=== PATIENT | male | born 1945 | race Caucasian/White ===

== ENCOUNTER → 2016-03-25 | Outpatient (CLI) | payer MEDICARE, BC, OTHER ==
[2016-03-25 16:15] LABS: BLOOD UREA NITROGEN 17 MG/DL (7-18); CREATININE FOR GFR 1.13 MG/DL (0.70-1.30); GLOMERULAR FILTRATION RATE > 60.0 (>42)
== END ==
LOC: M LAB 14:53
PROVIDERS: ATTEND Urology
DX: N28.1 Cyst of kidney, acquired (principal)

== ENCOUNTER → 2017-05-20 | Outpatient (CLI) | payer MEDICARE, BC, OTHER ==
[2017-05-20 16:29] LABS: ANION GAP 5 MEQ/L (8-16); BLOOD UREA NITROGEN 17 MG/DL (7-18); CALCIUM LEVEL 8.8 MG/DL (8.8-10.2); CARBON DIOXIDE LEVEL 28 MEQ/L (21-32); CHLORIDE LEVEL 106 MEQ/L (98-107); CREATININE FOR GFR 0.99 MG/DL (0.70-1.30); GLOMERULAR FILTRATION RATE > 60.0 (>42); GLUCOSE, FASTING 82 MG/DL (70-100); POTASSIUM SERUM 4.5 MEQ/L (3.5-5.1); PROSTATIC SPECIFIC AG MONITOR 1.82 NG/ML (< 4.0); SODIUM LEVEL 139 MEQ/L (136-145)
== END ==
LOC: M LAB 15:28
DX: R35.0 Frequency of micturition (principal); R35.1 Nocturia; Z85.51 Personal history of malignant neoplasm of bladder
CPT/HCPCS: 84153

== ENCOUNTER → 2018-05-18 | Outpatient (CLI) | payer MEDICARE, BC, OTHER ==
[2018-05-18 13:45] LABS: BLOOD UREA NITROGEN 16 MG/DL (7-18); CREATININE FOR GFR 1.06 MG/DL (0.70-1.30); GLOMERULAR FILTRATION RATE > 60.0 (>42)
== END ==
LOC: M LAB 12:57
PROVIDERS: ATTEND Urology
DX: Z01.812 Encounter for preprocedural laboratory examination (principal); Z85.51 Personal history of malignant neoplasm of bladder

== ENCOUNTER 2018-08-29 16:43 | Emergency (ER) | payer OTHER, MEDICARE, BC ==
[~2018-08-29] VITALS: Ht 182.9 cm; Wt 95.5 kg
[2018-08-29] MEDS ORDERED: LOSA100T50 (18:43)
[2018-08-29] MEDS ORDERED: ALBU8.5H (18:43)
[2018-08-29] MEDS ORDERED: ADV250INH (18:43)
[2018-08-29] MEDS ORDERED: MUPI30CR TOP (19:45)
[2018-08-29] MEDS ORDERED: MUPIROCIN 2% OINT 22 GM TUBE TOP ONE (19:45)
[2018-08-29 20:12] VITALS: BP 160/84
== END 2018-08-29 20:13 | disposition home or self-care (01) ==
LOC: M ED 19:06
DX: S51.801A Unspecified open wound of right forearm, initial encounter (principal); W23.0XXA Caught, crushed, jammed, or pinched between moving objects, initial encounter; Y92.89 Other specified places as the place of occurrence of the external cause; I10 Essential (primary) hypertension; J45.909 Unspecified asthma, uncomplicated; Z87.891 Personal history of nicotine dependence

== ENCOUNTER → 2019-01-22 | Outpatient (CLI) | payer MEDICARE, OTHER, BC ==
[~2019-01-22] MED LIST: ADV250INH; ALBU8.5H; LOSA100T50; MUPI30CR TOP
[2019-01-22 15:35] LABS: HEMOGLOBIN 15.8 g/dl (13.5-17.5); MEAN CORPUSCULAR HEMOGLOBIN 32.7 pg (27.0-33.0); MEAN CORPUSCULAR HGB CONC 32.2 g/dl (32.0-36.5); MEAN CORPUSCULAR VOLUME 101.4 fl (80.0-96.0); PLATELET COUNT, AUTOMATED 225 10^3/uL (150-450); RED BLOOD COUNT 4.83 10^6/uL (4.30-6.10); WHITE BLOOD COUNT 7.3 10^3/uL (4.0-10.0)
[2019-01-22 15:38] LABS: BLOOD UREA NITROGEN 12 MG/DL (7-18); CALCIUM LEVEL 8.9 MG/DL (8.8-10.2); CARBON DIOXIDE LEVEL 30 MEQ/L (21-32); CHLORIDE LEVEL 102 MEQ/L (98-107); CREATININE FOR GFR 1.03 MG/DL (0.70-1.30); GLOMERULAR FILTRATION RATE > 60.0 (>42); GLUCOSE, FASTING 98 MG/DL (70-100); POTASSIUM SERUM 4.5 MEQ/L (3.5-5.1); SODIUM LEVEL 138 MEQ/L (136-145)
== END ==
LOC: M WUC 11:48
PROVIDERS: ATTEND Nurse Practitioner Family
DX: M54.30 Sciatica, unspecified side (principal)

== ENCOUNTER 2019-01-29 10:34 | Emergency (ER) | payer MEDICARE, BC, OTHER ==
[~2019-01-29] VITALS: Ht 182.9 cm; Wt 96.4 kg
[2019-01-29 13:25] LABS: BASO # 0.1 10^3/uL (0.0-0.2); BASO % 0.9 % (0.0-1.0); EOS # 0.2 10^3/uL (0.0-0.5); EOS % 2.1 % (0.0-3.0); HEMATOCRIT 48.3 % (42.0-52.0); LYMPH # 1.1 10^3/uL (1.5-5.0); LYMPH % 14.2 % (24.0-44.0); MEAN CORPUSCULAR HEMOGLOBIN 33.2 pg (27.0-33.0); MEAN CORPUSCULAR HGB CONC 33.1 g/dl (32.0-36.5); MEAN CORPUSCULAR VOLUME 100.2 fl (80.0-96.0); MONO # 0.5 10^3/uL (0.0-0.8); MONO % 6.5 % (0.0-5.0); NEUTROPHILS # 6.1 10^3/uL (1.5-8.5); NEUTROPHILS % 75.3 % (36.0-66.0); PLATELET COUNT, AUTOMATED 227 10^3/uL (150-450); RED BLOOD COUNT 4.82 10^6/uL (4.30-6.10)
[2019-01-29] MEDS ORDERED: ALBUTEROL SULFATE 2.5 MG/0.5 ML INH NEB SOLN NEB ONE (13:30)
--- NOTE | 2019-01-29 13:44 | REP ---
CT lumbar spine: 01/29/2019. Indication: Low back pain. Comparison: None. Findings: Vacuum disc phenomenon and significant loss of disc space height are present at L2/L3, L3/L4 and L5/S1. There is dextroscoliosis of the lumbar spine with the convexity centered at L3/L4. Bilateral renal calculi are present without evidence of obstruction. Aortoiliac atherosclerotic disease is noted. There is no acute fracture, subluxation or dislocation. Spondylosis is present most pronounced at L5/S1. Impression: No acute osseous lumbar spine injury. Scoliosis and multilevel degenerative sequelae. Nonobstructing bilateral renal calculi. Electronically Signed by Stiven Craig DO 01/29/2019 01:35 P
[2019-01-29 13:55] LABS: BLOOD UREA NITROGEN 19 MG/DL (7-18); C REACTIVE PROTEIN QUANTITATIV < 0.30 MG/DL (0.00-0.30); CALCIUM LEVEL 8.5 MG/DL (8.8-10.2); CARBON DIOXIDE LEVEL 31 MEQ/L (21-32); CHLORIDE LEVEL 105 MEQ/L (98-107); CREATININE FOR GFR 0.95 MG/DL (0.70-1.30); GLOMERULAR FILTRATION RATE > 60.0 (>42); GLUCOSE, FASTING 90 MG/DL (70-100); POTASSIUM SERUM 4.2 MEQ/L (3.5-5.1); SODIUM LEVEL 139 MEQ/L (136-145)
--- NOTE | 2019-01-29 13:58 | REP ---
CT pelvis without IV or oral contrast: History: Bilateral hip and pelvic pain. History of bladder cancer. CT findings: The upper most slices in the imaging field of view document intrarenal nephrolithiasis left kidney with two visible lower pole calculi in the left kidney. These measure 10 and 8 mm in greatest diameter respectively. Also noted is some hypertrophy and edema or fibrosis in the small bowel mesentery in the central abdomen which may reflect mesenteric panniculitis. There is left colonic diverticulosis without CT evidence of diverticulitis. Urinary bladder is unremarkable. Prostate and seminal vesicles are intact. No abdominal wall defect is seen. Bone window settings show no bony destructive lesion. There are advanced osteoarthritic facet changes in the lower lumbar spine at L4-5 and L5-S1. A normal appendix is visible. Impression: No evidence of mass or adenopathy. Intrarenal nephrolithiasis lower pole left kidney. Left colonic diverticulosis without CT evidence of diverticulitis. Hypertrophy and edema or fibrosis in the small bowel mesenteric fat question mesenteric panniculitis. Otherwise negative. Electronically Signed by eNptali Rubi MD 01/29/2019 05:59 P
[2019-01-29 14:04] LABS: ERYTHROCYTE SEDIMENTATION RATE 4 mm/hr (0-20)
[2019-01-29 14:52] LABS: RHEUMATOID FACTOR QUANT 37.8 IU/ML (<15.0)
[2019-01-29] MEDS ORDERED: PRED10TA2 PO (14:54)
[2019-01-29 15:06] VITALS: BP 156/72
[2019-01-31 00:06] LABS: ANTINUCLEAR ANTIBODIES DIRECT Negative (Negative); CYCLIC CITRULLINATED PEPTIDE 58 units (0-19); Lyme Disease IgG/IgM Antibodie <0.91 ISR (0.00-0.90); Lyme Disease IgM Ab Quantitati <0.80 index (0.00-0.79)
== END 2019-01-29 15:13 | disposition home or self-care (01) ==
LOC: M ED 10:34
DX: M25.551 Pain in right hip (principal); M25.552 Pain in left hip; M51.36 Other intervertebral disc degeneration, lumbar region; M79.3 Panniculitis, unspecified; N20.0 Calculus of kidney; K57.30 Diverticulosis of large intestine without perforation or abscess without bleeding; C67.9 Malignant neoplasm of bladder, unspecified; F17.200 Nicotine dependence, unspecified, uncomplicated; H81.09 Meniere's disease, unspecified ear; I10 Essential (primary) hypertension; J44.9 Chronic obstructive pulmonary disease, unspecified; Z79.51 Long term (current) use of inhaled steroids; Z79.899 Other long term (current) drug therapy

== ENCOUNTER → 2020-04-18 | Outpatient (CLI) | payer MEDICARE, BC, OTHER ==
[~2020-04-18] MED LIST changes: +PRED10TA2 PO
[2020-04-18 12:49] LABS: BLOOD UREA NITROGEN 21 MG/DL (7-18); CALCIUM LEVEL 8.9 MG/DL (8.8-10.2); CARBON DIOXIDE LEVEL 31 MEQ/L (21-32); CHLORIDE LEVEL 104 MEQ/L (98-107); CREATININE FOR GFR 1.09 MG/DL (0.70-1.30); GLOMERULAR FILTRATION RATE > 60.0 (>42); GLUCOSE, FASTING 89 MG/DL (70-100); POTASSIUM SERUM 4.7 MEQ/L (3.5-5.1); SODIUM LEVEL 138 MEQ/L (136-145)
== END ==
LOC: M LAB 11:50
PROVIDERS: ATTEND Urology
DX: Z12.5 Encounter for screening for malignant neoplasm of prostate (principal); Z85.51 Personal history of malignant neoplasm of bladder; Z85.54 Personal history of malignant neoplasm of ureter

== ENCOUNTER → 2020-05-10 | Outpatient (CLI) | payer MEDICARE, BC, OTHER | LOC: M LABSMTC 11:31 | PROVIDERS: ATTEND Urology | DX: Z11.52 Encounter for screening for COVID-19 (principal) ==

== ENCOUNTER → 2021-07-15 | Outpatient (CLI) | payer MEDICARE, BC, OTHER ==
[~2021-07-15] MED LIST changes: +LOSA100T45; -LOSA100T50
[2021-07-15 14:35] LABS: BLOOD UREA NITROGEN 15 MG/DL (7-18); CALCIUM LEVEL 8.7 MG/DL (8.8-10.2); CARBON DIOXIDE LEVEL 27 MEQ/L (21-32); CHLORIDE LEVEL 107 MEQ/L (98-107); CREATININE FOR GFR 0.92 MG/DL (0.70-1.30); GLOMERULAR FILTRATION RATE > 60.0 (>42); GLUCOSE, FASTING 92 MG/DL (70-100); POTASSIUM SERUM 4.3 MEQ/L (3.5-5.1); SODIUM LEVEL 139 MEQ/L (136-145)
== END ==
LOC: M LAB 13:46
PROVIDERS: ATTEND Urology
DX: Z85.54 Personal history of malignant neoplasm of ureter (principal); Z85.51 Personal history of malignant neoplasm of bladder; Z12.5 Encounter for screening for malignant neoplasm of prostate

== ENCOUNTER → 2022-01-25 | Outpatient (CLI) | payer MEDICARE, BC, OTHER ==
[2022-01-25 11:11] LABS: BLOOD UREA NITROGEN 12 MG/DL (9-23); CALCIUM LEVEL 8.5 MG/DL (8.3-10.6); CARBON DIOXIDE LEVEL 28 MMOL/L (20-31); CHLORIDE LEVEL 101 MMOL/L (98-107); CREATININE FOR GFR 0.81 MG/DL (0.70-1.30); GLOMERULAR FILTRATION RATE > 60.0 (>42); GLUCOSE, FASTING 103 MG/DL (74-106); POTASSIUM SERUM 4.3 MMOL/L (3.5-5.1); SODIUM LEVEL 137 MMOL/L (136-145)
== END ==
LOC: M LAB 09:13
PROVIDERS: ATTEND Urology
DX: Z85.54 Personal history of malignant neoplasm of ureter (principal)

== ENCOUNTER → 2022-02-24 | Outpatient (CLI) | payer MEDICARE, BC, OTHER | LOC: M WUC 11:08 | PROVIDERS: ATTEND Nurse Practitioner Adult Health | DX: J20.9 Acute bronchitis, unspecified (principal); J90 Pleural effusion, not elsewhere classified ==

== ENCOUNTER 2022-03-05 12:46 | Emergency (ER) | payer MEDICARE, BC, OTHER ==
[~2022-03-05] VITALS: Ht 182.9 cm; Wt 90.2 kg
[2022-03-05 12:46] VITALS: BP 127/76
[~2022-03-05 12:46] MED LIST changes: -ALBU2.5V10; -AMLO1TAB24; -ELIQ5TAB PO; -LEVO1TAB39; -TAMS1CAP17; -TREL1AER
[2022-03-05] MEDS ORDERED: LEVO1TAB39 (12:54)
[2022-03-05] MEDS ORDERED: TREL1AER (12:54)
[2022-03-05] MEDS ORDERED: AMLO1TAB24 (12:54)
[2022-03-05] MEDS ORDERED: TAMS1CAP17 (12:54)
[2022-03-05] MEDS ORDERED: ALBU2.5V10 (12:54)
[2022-03-05 13:54] LABS: BASO # 0.1 10^3/uL (0.0-0.2); BASO % 0.4 % (0.0-1.0); EOS # 0.1 10^3/uL (0.0-0.5); EOS % 0.4 % (0.0-3.0); HEMATOCRIT 45.1 % (42.0-52.0); HEMOGLOBIN 14.9 g/dl (13.5-17.5); LYMPH # 0.5 10^3/uL (1.5-5.0); LYMPH % 3.3 % (24.0-44.0); MEAN CORPUSCULAR HEMOGLOBIN 32.2 pg (27.0-33.0); MEAN CORPUSCULAR VOLUME 97.4 fl (80.0-96.0); MONO # 0.4 10^3/uL (0.0-0.8); NEUTROPHILS # 12.9 10^3/uL (1.5-8.5); PLATELET COUNT, AUTOMATED 191 10^3/uL (150-450); RED BLOOD COUNT 4.63 10^6/uL (4.30-6.10)
[2022-03-05 14:05] LABS: INR 0.85; PARTIAL THROMBOPLASTIN TIME 28.6 SECONDS (24.8-34.2); PROTHROMBIN TIME 11.8 SECONDS (12.5-14.5)
[2022-03-05 14:15] LABS: BILIRUBIN,DIRECT 0.2 MG/DL (<0.4)
[2022-03-05 14:22] LABS: ALBUMIN 2.9 G/DL (3.2-5.2); ALKALINE PHOSPHATASE 96 U/L (46-116); ALT/SGPT 53 U/L (7.0-40); AST/SGOT 37 U/L (<34); BILIRUBIN,TOTAL 0.6 MG/DL (0.3-1.2); BLOOD UREA NITROGEN 25 MG/DL (9-23); CALCIUM LEVEL 8.3 MG/DL (8.3-10.6); CARBON DIOXIDE LEVEL 26 MMOL/L (20-31); CHLORIDE LEVEL 102 MMOL/L (98-107); CREATININE FOR GFR 0.94 MG/DL (0.70-1.30); GLOMERULAR FILTRATION RATE > 60.0 (>42); GLUCOSE, FASTING 101 MG/DL (74-106); POTASSIUM SERUM 5.8 MMOL/L (3.5-5.1); SODIUM LEVEL 134 MMOL/L (136-145); TOTAL PROTEIN 6.3 G/DL (5.7-8.2)
[2022-03-05] MEDS ORDERED: ISOVUE-370 76% 100ML VIAL As Ordered ONE (14:27)
[2022-03-05 15:00] LABS: D-DIMER QUANT > 4000 ng/ml (<500)
[2022-03-05] MEDS ORDERED: APIXABAN 5 MG TAB (ELIQUIS) PO ONE (15:25)
[2022-03-05] MEDS ORDERED: ELIQ5TAB PO (15:39)
== END 2022-03-05 16:52 | disposition home or self-care (01) ==
LOC: M ED 12:46
DX: I26.99 Other pulmonary embolism without acute cor pulmonale (principal); I80.292 Phlebitis and thrombophlebitis of other deep vessels of left lower extremity; J90 Pleural effusion, not elsewhere classified; R91.8 Other nonspecific abnormal finding of lung field; N28.1 Cyst of kidney, acquired; N20.0 Calculus of kidney; I10 Essential (primary) hypertension; J45.909 Unspecified asthma, uncomplicated; Z87.442 Personal history of urinary calculi; Z85.51 Personal history of malignant neoplasm of bladder
CPT/HCPCS: 71275; 80048; 80076; 85025; 85379; 85610; 85730; 93005; 93041; 93971; 94760; 99284; Q9967

== ENCOUNTER → 2022-03-05 | Outpatient (CLI) | payer MEDICARE, BC, OTHER ==
[~2022-03-05] MED LIST changes: +ALBU2.5V10; +AMLO1TAB24; +ELIQ5TAB PO; +LEVO1TAB39; +TAMS1CAP17; +TREL1AER
== END ==
LOC: M WHC 11:24
PROVIDERS: ATTEND Physician Assistant Medical
DX: I82.402 Acute embolism and thrombosis of unspecified deep veins of left lower extremity (principal)

== ENCOUNTER → 2022-04-19 | Outpatient (CLI) | payer MEDICARE, BC, OTHER ==
[~2022-04-19] MED LIST changes: +ALBU2.5V10; +AMLO1TAB24; +ELIQ5TAB PO; +LEVO1TAB39; +TAMS1CAP17; +TREL1AER
== END ==
LOC: M RAD 11:01
PROVIDERS: ATTEND Nurse Practitioner Family
DX: R91.1 Solitary pulmonary nodule (principal)

== ENCOUNTER → 2022-05-10 | Outpatient (CLI) | payer MEDICARE, BC, OTHER | LOC: M LABSMTC 10:56 | PROVIDERS: ATTEND Nurse Practitioner Family | DX: Z01.818 Encounter for other preprocedural examination (principal); Z11.52 Encounter for screening for COVID-19; J90 Pleural effusion, not elsewhere classified ==

== ENCOUNTER → 2022-05-19 | Outpatient (REF) | payer MEDICARE, BC, OTHER | LOC: M WUC 22:44 | PROVIDERS: ATTEND Nurse Practitioner Family | DX: R30.0 Dysuria (principal); N39.0 Urinary tract infection, site not specified ==

== ENCOUNTER → 2022-06-02 | Outpatient (REF) | payer MEDICARE, BC, OTHER | LOC: M LAB REF 16:37 | PROVIDERS: ATTEND Physician Assistant Medical | DX: N39.0 Urinary tract infection, site not specified (principal) ==

== ENCOUNTER → 2022-06-18 | Outpatient (REF) | payer MEDICARE, BC, OTHER ==
[2022-06-18 15:27] LABS: APPEARANCE, URINE HAZY (CLEAR); BACTERIA, URINE AUTO NEGATIVE (NEGATIVE); BILIRUBIN, URINE AUTO NEGATIVE (NEGATIVE); BLOOD, URINE BLOOD 3+ (NEGATIVE); COLOR, URINE YELLOW (YELLOW); GLUCOSE, URINE (UA) AUTO NEGATIVE (NEGATIVE); KETONE, URINE AUTO TRACE mg/dL (NEGATIVE); LEUKOCYTE ESTERASE, URINE AUTO TRACE (NEGATIVE); MUCUS, URINE SMALL (NEGATIVE); NITRITE, URINE AUTO NEGATIVE (NEGATIVE); PROTEIN, URINE AUTO 2+ mg/dL (NEGATIVE); RBC, URINE AUTO TNTC /HPF (0-3); SPECIFIC GRAVITY URINE AUTO 1.011 (1.002-1.035); SQUAMOUS EPITHELIAL CELL UR AU 1 /HPF (0-6); UROBILINOGEN, URINE AUTO 0.2 mg/dL (0.0-2.0); WBC, URINE AUTO TNTC /HPF (0-3)
== END ==
LOC: M LAB REF 14:41
PROVIDERS: ATTEND Nurse Practitioner Adult Health
DX: R30.0 Dysuria (principal)

== ENCOUNTER → 2022-07-16 | Outpatient (CLI) | payer MEDICARE, BC, OTHER ==
[~2022-07-16] MED LIST changes: -LOSA100T45; +LOSA100T46
== END ==
LOC: M RAD 09:48
PROVIDERS: ATTEND Nurse Practitioner Adult Health
DX: I82.412 Acute embolism and thrombosis of left femoral vein (principal); I82.812 Embolism and thrombosis of superficial veins of left lower extremity; I82.432 Acute embolism and thrombosis of left popliteal vein

== ENCOUNTER → 2022-07-16 | Outpatient (CLI) | payer MEDICARE, BC, OTHER ==
[2022-07-16 11:18] LABS: PROSTATIC SPECIFIC AG MONITOR 1.49 NG/ML (< 4.00)
[2022-07-16 11:21] LABS: BLOOD UREA NITROGEN 17 MG/DL (9-23); CARBON DIOXIDE LEVEL 30 MMOL/L (20-31); CHLORIDE LEVEL 103 MMOL/L (98-107); CREATININE FOR GFR 0.93 MG/DL (0.70-1.30); GLOMERULAR FILTRATION RATE > 60.0 (>42); GLUCOSE, FASTING 91 MG/DL (74-106); POTASSIUM SERUM 4.2 MMOL/L (3.5-5.1); SODIUM LEVEL 138 MMOL/L (136-145)
== END ==
LOC: M LAB 09:54
PROVIDERS: ATTEND Urology
DX: I82.412 Acute embolism and thrombosis of left femoral vein (principal); I82.812 Embolism and thrombosis of superficial veins of left lower extremity; I82.432 Acute embolism and thrombosis of left popliteal vein; Z85.54 Personal history of malignant neoplasm of ureter; Z85.51 Personal history of malignant neoplasm of bladder; Z12.5 Encounter for screening for malignant neoplasm of prostate

== ENCOUNTER → 2022-07-26 | Outpatient (CLI) | payer MEDICARE, BC, OTHER | LOC: M RAD 13:14 | PROVIDERS: ATTEND Thoracic Surgery (Cardiothoracic Vascular Surgery) | DX: R91.8 Other nonspecific abnormal finding of lung field (principal); J47.9 Bronchiectasis, uncomplicated; J98.11 Atelectasis; J90 Pleural effusion, not elsewhere classified ==

== ENCOUNTER → 2022-09-16 | Outpatient (REF) | payer MEDICARE, BC, OTHER ==
[2022-09-16 11:52] LABS: INR 1.02; PROTHROMBIN TIME 13.6 SECONDS (12.5-14.5)
[2022-09-16 11:53] LABS: PARTIAL THROMBOPLASTIN TIME 35.4 SECONDS (24.8-34.2)
== END ==
LOC: M LAB REF 11:45
PROVIDERS: ATTEND Internal Medicine
DX: Z01.818 Encounter for other preprocedural examination (principal)

== ENCOUNTER → 2022-10-11 | Outpatient (CLI) | payer MEDICARE, BC, OTHER | LOC: M RAD 16:44 | PROVIDERS: ATTEND Nurse Practitioner Family | DX: J90 Pleural effusion, not elsewhere classified (principal) ==

== ENCOUNTER 2022-10-26 13:55 | Observation (INO) | payer MEDICARE, BC, OTHER ==
[~2022-10-26] VITALS: Ht 182.9 cm; Wt 90.0 kg
[2022-10-26] MEDS ORDERED: FUROSEMIDE 40MG/4ML VIAL IV ONE (15:05)
[2022-10-26 15:20] LABS: BASO # 0.1 10^3/uL (0.0-0.2); BASO % 0.3 % (0.0-1.0); EOS % 0.1 % (0.0-3.0); HEMATOCRIT 46.9 % (42.0-52.0); HEMOGLOBIN 15.7 g/dl (13.5-17.5); LYMPH # 0.5 10^3/uL (1.5-5.0); LYMPH % 2.5 % (24.0-44.0); MEAN CORPUSCULAR HEMOGLOBIN 32.5 pg (27.0-33.0); MEAN CORPUSCULAR HGB CONC 33.5 g/dl (32.0-36.5); MEAN CORPUSCULAR VOLUME 97.1 fl (80.0-96.0); MONO # 1.1 10^3/uL (0.0-0.8); MONO % 5.6 % (2.0-8.0); NEUTROPHILS # 17.4 10^3/uL (1.5-8.5); NEUTROPHILS % 90.6 % (36.0-66.0); PLATELET COUNT, AUTOMATED 207 10^3/uL (150-450); RED BLOOD COUNT 4.83 10^6/uL (4.30-6.10); WHITE BLOOD COUNT 19.2 10^3/uL (4.0-10.0)
[2022-10-26] MEDS: IPRATROPIUM 0.5MG/ALBUTEROL 2.5MG INH SOL UD 3ML (DUONEB) NEB SCH ×4 (15:26→19:56)
[2022-10-26 15:35] LABS: ABG BASE EXCESS -1.1 (-2.0-2.0); ABG HCO3 23.4 MMOL/L (22.0-26.0); ABG O2 SATURATION 95.1 % (95.0-99.0); ABG PARTIAL PRESSURE CO2 38.8 mmHg (35.0-45.0); ABG PARTIAL PRESSURE O2 76.5 mmHg (75.0-100.0); ABG STANDARD HCO3 23.5 MMOL/L. (22.0-26.0); ABG TOTAL CO2 24.6 MMOL/L (23.0-31.0); ABG pH (ARTERIAL) 7.399 UNITS (7.350-7.450)
[2022-10-26 15:43] LABS: ALBUMIN 3.1 G/DL (3.2-5.2); ALKALINE PHOSPHATASE 82 U/L (46-116); ALT/SGPT 20 U/L (7.0-40); AST/SGOT 12 U/L (<34); BILIRUBIN,DIRECT 0.4 MG/DL (<0.4); BILIRUBIN,TOTAL 1.1 MG/DL (0.3-1.2); BLOOD UREA NITROGEN 22 MG/DL (9-23); CALCIUM LEVEL 8.2 MG/DL (8.3-10.6); CARBON DIOXIDE LEVEL 25 MMOL/L (20-31); CHLORIDE LEVEL 104 MMOL/L (98-107); CREATININE FOR GFR 0.82 MG/DL (0.70-1.30); GLOMERULAR FILTRATION RATE > 60.0 (>42); GLUCOSE, FASTING 114 MG/DL (74-106); POTASSIUM SERUM 4.3 MMOL/L (3.5-5.1); SODIUM LEVEL 136 MMOL/L (136-145); TOTAL PROTEIN 6.3 G/DL (5.7-8.2)
[2022-10-26 15:47] LABS: CK-MB VALUE MASS < 1.0 NG/ML (<3.6)
[2022-10-26 15:49] LABS: CPK CREATINE PHOSPHOKINASE 56 U/L (46-171); MB/CK RELATIVE INDEX 1.78 (< OR =4)
[2022-10-26 17:22] LABS: CK-MB VALUE MASS < 1.0 NG/ML (<3.6)
[2022-10-26 17:26] LABS: CPK CREATINE PHOSPHOKINASE 63 U/L (46-171); MB/CK RELATIVE INDEX 1.58 (< OR =4)
[2022-10-26 18:27] LABS: PROCALCITONIN 0.07 ng/ml
[2022-10-26] MEDS ORDERED: guaiFENesin DM LIQ 10ML UD PO PRN (19:05)
[2022-10-26] MEDS ORDERED: guaiFENesin DM LIQ 10ML UD PO ONE (19:05)
[2022-10-26] MEDS: FUROSEMIDE 40MG/4ML VIAL IV SCH (19:05)
[2022-10-26] MEDS ORDERED: MED REC IN PROGRESS XX SCH (19:15)
[2022-10-26 19:43] LABS: BLOOD UREA NITROGEN 19 MG/DL (9-23); CALCIUM LEVEL 8.4 MG/DL (8.3-10.6); CARBON DIOXIDE LEVEL 27 MMOL/L (20-31); CHLORIDE LEVEL 103 MMOL/L (98-107); CREATININE FOR GFR 0.88 MG/DL (0.70-1.30); GLOMERULAR FILTRATION RATE > 60.0 (>42); GLUCOSE, FASTING 102 MG/DL (74-106); POTASSIUM SERUM 3.9 MMOL/L (3.5-5.1); SODIUM LEVEL 138 MMOL/L (136-145)
[2022-10-26] MEDS: methylPREDNISolone 40MG 1ML VIAL IV SCH (20:00)
[2022-10-26] MEDS ORDERED: cefTRIAXone SOD 2 GM in D5W MINI-BAG PLUS 50 ML IV SCH (20:00)
[2022-10-26 20:06] LABS: INR 1.03; PROTHROMBIN TIME 13.2 SECONDS (12.5-14.5)
[2022-10-26 20:07] LABS: PARTIAL THROMBOPLASTIN TIME 33.4 SECONDS (24.8-34.2)
[2022-10-26] MEDS ORDERED: MED REC CURRENTLY UNOBTAINABLE XX SCH (20:50)
[2022-10-26] MEDS ORDERED: ENTER DRUG NAME HERE (PATIENT'S OWN MED) INH SCH (21:00)
[2022-10-26] MEDS: DOXYCYCLINE HYCLATE 100 MG in D5W MINI-BAG PLUS 100 ML IV SCH (21:00)
[2022-10-26 21:40] VITALS: BP 151/74; TEMP 99.3; O2SAT 94
[2022-10-26 23:04] VITALS: TEMP 98.1
[2022-10-27] VITALS (9 sets, daily range): BP systolic 127–138; BP diastolic 70–73; TEMP 98.1–98.4; O2SAT 91–97
[2022-10-27] MEDS ORDERED: TREL1AER INH (00:03)
[2022-10-27] MEDS ORDERED: ELIQ5TAB PO (00:03)
[2022-10-27] MEDS ORDERED: FLOM0.4C39 PO (00:03)
[2022-10-27] MEDS ORDERED: ALBU8.5H INH (00:03)
[2022-10-27] MEDS ORDERED: AMLO1TAB24 PO (00:03)
[2022-10-27] MEDS ORDERED: ALBU2.5V10 INH ×2 (00:03→07:28)
[2022-10-27] MEDS ORDERED: HOME MED LIST COMPLETE! XX SCH (00:05)
[2022-10-27 00:40] LABS: CK-MB VALUE MASS < 1.0 NG/ML (<3.6)
[2022-10-27 00:41] LABS: CPK CREATINE PHOSPHOKINASE 73 U/L (46-171); MB/CK RELATIVE INDEX 1.36 (< OR =4)
[2022-10-27] MEDS: methylPREDNISolone 40MG 1ML VIAL IV SCH ×2 (05:19→13:00)
[2022-10-27] MEDS: IPRATROPIUM 0.5MG/ALBUTEROL 2.5MG INH SOL UD 3ML (DUONEB) NEB SCH ×5 (05:26→15:51)
[2022-10-27 07:13] LABS: BASO % 0.1 % (0.0-1.0); HEMATOCRIT 47.4 % (42.0-52.0); HEMOGLOBIN 15.6 g/dl (13.5-17.5); LYMPH # 0.5 10^3/uL (1.5-5.0); LYMPH % 2.6 % (24.0-44.0); MEAN CORPUSCULAR HEMOGLOBIN 32.2 pg (27.0-33.0); MEAN CORPUSCULAR HGB CONC 32.9 g/dl (32.0-36.5); MEAN CORPUSCULAR VOLUME 97.9 fl (80.0-96.0); MONO # 0.4 10^3/uL (0.0-0.8); NEUTROPHILS # 16.1 10^3/uL (1.5-8.5); NEUTROPHILS % 94.3 % (36.0-66.0); PLATELET COUNT, AUTOMATED 195 10^3/uL (150-450); RED BLOOD COUNT 4.84 10^6/uL (4.30-6.10); WHITE BLOOD COUNT 17.1 10^3/uL (4.0-10.0)
[2022-10-27] MEDS ORDERED: BACI1CAP PO (07:28)
[2022-10-27] MEDS ORDERED: PRED10TA2 PO (07:28)
[2022-10-27] MEDS ORDERED: PRED20TA PO (07:28)
[2022-10-27] MEDS ORDERED: DOXY-444 PO (07:28)
[2022-10-27] MEDS ORDERED: CEFD300C41 PO (07:28)
[2022-10-27 07:37] LABS: CK-MB VALUE MASS < 1.0 NG/ML (<3.6); TOTAL PROTEIN 6.2 G/DL (5.7-8.2)
[2022-10-27 07:39] LABS: BLOOD UREA NITROGEN 20 MG/DL (9-23); CALCIUM LEVEL 8.6 MG/DL (8.3-10.6); CARBON DIOXIDE LEVEL 28 MMOL/L (20-31); CHLORIDE LEVEL 103 MMOL/L (98-107); CPK CREATINE PHOSPHOKINASE 78 U/L (46-171); CREATININE FOR GFR 0.84 MG/DL (0.70-1.30); GLOMERULAR FILTRATION RATE > 60.0 (>42); GLUCOSE, FASTING 144 MG/DL (74-106); MB/CK RELATIVE INDEX 1.28 (< OR =4); POTASSIUM SERUM 4.1 MMOL/L (3.5-5.1); SODIUM LEVEL 136 MMOL/L (136-145)
[2022-10-27] MEDS: DOXYCYCLINE HYCLATE 100 MG in D5W MINI-BAG PLUS 100 ML IV SCH (08:50)
[2022-10-27] MEDS: FUROSEMIDE 40MG/4ML VIAL IV SCH (08:51)
[2022-10-27 12:41] LABS: CK-MB VALUE MASS 1.1 NG/ML (<3.6)
[2022-10-27 12:50] LABS: MB/CK RELATIVE INDEX 1.11 (< OR =4)
[2022-10-27 15:38] LABS: PH BODY FLUID 7.703 UNITS (NOT ESTABLISHED); SOURCE, BODY FLUID pH PLEURAL
[2022-10-27 15:43] LABS: APPEARANCE, BODY FLUID HAZY (CLEAR); PLEURAL FL COLOR ORANGE (COLORLESS); SOURCE, BODY FLUID PLEURAL
[2022-10-27 16:23] LABS: SOURCE, BODY FLUID GLUCOSE PLEURAL
[2022-10-27 16:24] LABS: LDH, BODY FLUID 124 U/L (NOT ESTABLISHED); SOURCE, BODY FLUID LDH PLEURAL
[2022-10-27 16:25] LABS: AMYLASE, BODY FLUID 100 U/L (NOT ESTABLISHED); SOURCE, BODY FLUID AMYLASE PLEURAL; SOURCE, BODY FLUID TOT PROTEIN PLEURAL
[2022-10-27] MEDS ORDERED: DOXYCYCLINE HYCLATE 100MG TABLET PO SCH (21:00)
[2022-10-28 13:09] LABS: ANTINUCLEAR ANTIBODIES DIRECT Negative (Negative)
== END 2022-10-27 16:45 | disposition home health service (06) ==
LOC: M ED 13:55 → M ED INP 13:56 → ENRESERV 21:08 → CANRESERV 21:08 → ENRESERV 21:19 → M MS5PR 21:45
PROVIDERS: ADMIT General Practice; ATTEND General Practice
DX: J90 Pleural effusion, not elsewhere classified (principal); J98.11 Atelectasis; J44.1 Chronic obstructive pulmonary disease with (acute) exacerbation; Z87.09 Personal history of other diseases of the respiratory system; Z85.59 Personal history of malignant neoplasm of other urinary tract organ; Z85.51 Personal history of malignant neoplasm of bladder; Z86.711 Personal history of pulmonary embolism; Z86.718 Personal history of other venous thrombosis and embolism; Z79.52 Long term (current) use of systemic steroids; D72.829 Elevated white blood cell count, unspecified; Z87.891 Personal history of nicotine dependence; Z84.1 Family history of disorders of kidney and ureter; Z79.899 Other long term (current) drug therapy; Z79.01 Long term (current) use of anticoagulants; Z79.2 Long term (current) use of antibiotics
CPT/HCPCS: 32555; 36415; 36600; 71250; 80048; 80076; 82150; 82550; 82553; 82803; 82945; 83605; 83615; 83735; 83880; 83986; 84145; 84155; 84157; 84484; 85025; 85610; 85652; 85730; 86038; 86140; 87040; 87070; 87102; 87116; 87206; 87486; 87581; 87633; 87798; 88108; 88305; 88313; 89051; 93005; 93306; 94640; 94760; 96365; 96375; 96376; 97165; 97535; 99285; G0378; J0696; J1940; J2920

== ENCOUNTER → 2022-11-01 | Outpatient (REF) | payer MEDICARE, BC, OTHER ==
[~2022-11-01] MED LIST changes: +ALBU2.5V10 INH; +ALBU8.5H INH; +AMLO1TAB24 PO; +BACI1CAP PO; +CEFD300C41 PO; +DOXY-444 PO; +FLOM0.4C39 PO; +PRED20TA PO; +TREL1AER INH
== END ==
LOC: M LAB REF 17:07
PROVIDERS: ATTEND Nurse Practitioner Family
DX: N39.0 Urinary tract infection, site not specified (principal)

== ENCOUNTER → 2023-01-17 | Outpatient (CLI) | payer MEDICARE, BC, OTHER ==
[~2023-01-17] MED LIST changes: -CEFD300C41 PO; +CEFD300C42 PO
== END ==
LOC: M RAD 12:32
PROVIDERS: ATTEND Internal Medicine Pulmonary Disease
DX: R91.8 Other nonspecific abnormal finding of lung field (principal); J98.11 Atelectasis; J91.8 Pleural effusion in other conditions classified elsewhere; J84.113 Idiopathic non-specific interstitial pneumonitis; I25.84 Coronary atherosclerosis due to calcified coronary lesion; K76.89 Other specified diseases of liver

== ENCOUNTER → 2023-03-28 | Outpatient (CLI) | payer MEDICARE, BC, OTHER ==
[~2023-03-28] MED LIST changes: +CEFD1CAP9 PO; -CEFD300C42 PO
== END ==
LOC: M RAD 15:46
PROVIDERS: ATTEND Internal Medicine Pulmonary Disease
DX: J90 Pleural effusion, not elsewhere classified (principal); R91.8 Other nonspecific abnormal finding of lung field

== ENCOUNTER → 2023-04-04 | Outpatient (CLI) | payer MEDICARE, BC, OTHER ==
[2023-04-04 11:45] LABS: PLATELET COUNT, AUTOMATED 261 10^3/uL (150-450)
[2023-04-04 11:55] LABS: INR 1.04; PROTHROMBIN TIME 13.3 SECONDS (12.5-14.5)
[2023-04-04 11:56] LABS: PARTIAL THROMBOPLASTIN TIME 34.2 SECONDS (24.8-34.2)
== END ==
LOC: M LAB 11:07
PROVIDERS: ATTEND Internal Medicine Pulmonary Disease
DX: Z01.812 Encounter for preprocedural laboratory examination (principal); J90 Pleural effusion, not elsewhere classified; Z79.01 Long term (current) use of anticoagulants

== ENCOUNTER → 2023-04-05 | Outpatient (CLI) | payer MEDICARE, BC, OTHER ==
[~2023-04-05] MED LIST changes: +ACETAMINOPHEN 325 MG TAB As Ordered ONE
[2023-04-05 10:45] VITALS: TEMP 98
[2023-04-05 11:25] LABS: BASO # 0.1 10^3/uL (0.0-0.2); BASO % 0.7 % (0.0-1.0); EOS # 0.2 10^3/uL (0.0-0.5); EOS % 1.7 % (0.0-3.0); HEMATOCRIT 49.4 % (42.0-52.0); HEMOGLOBIN 16.3 g/dl (13.5-17.5); LYMPH # 1.1 10^3/uL (1.5-5.0); LYMPH % 8.9 % (24.0-44.0); MEAN CORPUSCULAR HEMOGLOBIN 32.5 pg (27.0-33.0); MEAN CORPUSCULAR VOLUME 98.6 fl (80.0-96.0); MONO # 0.8 10^3/uL (0.0-0.8); MONO % 6.1 % (2.0-8.0); NEUTROPHILS % 80.4 % (36.0-66.0); PLATELET COUNT, AUTOMATED 266 10^3/uL (150-450); RED BLOOD COUNT 5.01 10^6/uL (4.30-6.10); WHITE BLOOD COUNT 12.4 10^3/uL (4.0-10.0)
[2023-04-05 11:39] LABS: INR 0.91
[2023-04-05 11:40] LABS: PARTIAL THROMBOPLASTIN TIME 30.5 SECONDS (24.8-34.2)
[2023-04-05 11:54] LABS: LDH LACTATE DEHYDROGENASE 225 U/L (120-246)
[2023-04-05 11:55] LABS: ALBUMIN 3.4 G/DL (3.2-5.2); ALKALINE PHOSPHATASE 86 U/L (46-116); ALT/SGPT 59 U/L (7.0-40); AST/SGOT 27 U/L (<34); BILIRUBIN,TOTAL 0.8 MG/DL (0.3-1.2); BLOOD UREA NITROGEN 18 MG/DL (9-23); CALCIUM LEVEL 8.5 MG/DL (8.3-10.6); CARBON DIOXIDE LEVEL 33 MMOL/L (20-31); CHLORIDE LEVEL 103 MMOL/L (98-107); GLOMERULAR FILTRATION RATE > 60.0 (>42); GLUCOSE, FASTING 88 MG/DL (74-106); SODIUM LEVEL 139 MMOL/L (136-145); TOTAL PROTEIN 6.8 G/DL (5.7-8.2)
[2023-04-05] MEDS: ACETAMINOPHEN TAB 650MG DOSE (2X325MG) PO PRN (12:25)
[2023-04-05 12:48] LABS: PH BODY FLUID 7.648 UNITS (NOT ESTABLISHED); SOURCE, BODY FLUID pH PLEURAL
[2023-04-05 13:01] LABS: APPEARANCE, BODY FLUID TURBID (CLEAR); PLEURAL FL COLOR ORANGE (COLORLESS); SOURCE, BODY FLUID PLEURAL
[2023-04-05 13:16] LABS: SOURCE, BODY FLUID GLUCOSE PLEURAL
[2023-04-05 13:17] LABS: LDH, BODY FLUID 285 U/L (NOT ESTABLISHED); SOURCE, BODY FLUID LDH PLEURAL
[2023-04-05 13:18] LABS: AMYLASE, BODY FLUID 107 U/L (NOT ESTABLISHED); SOURCE, BODY FLUID AMYLASE PLEURAL; SOURCE, BODY FLUID TOT PROTEIN PLEURAL; TOTAL PROTEIN, BODY FLUID 3.6 G/DL (NOT ESTABLISHED)
[2023-04-05 13:45] VITALS: BP 134/75; O2SAT 93
== END ==
LOC: M IRPRO 10:27
PROVIDERS: ATTEND Internal Medicine Pulmonary Disease
DX: J90 Pleural effusion, not elsewhere classified (principal); Z79.01 Long term (current) use of anticoagulants

== ENCOUNTER → 2023-04-19 | Outpatient (CLI) | payer MEDICARE, BC, OTHER ==
[~2023-04-19] MED LIST changes: -ACETAMINOPHEN 325 MG TAB As Ordered ONE
== END ==
LOC: M RAD 12:19
PROVIDERS: ATTEND Internal Medicine Pulmonary Disease
DX: J90 Pleural effusion, not elsewhere classified (principal); J98.11 Atelectasis

== ENCOUNTER → 2023-07-15 | Outpatient (CLI) | payer MEDICARE, BC ==
[~2023-07-15] MED LIST changes: +DOXY-440 PO; -DOXY-444 PO
[2023-07-15 13:34] LABS: BLOOD UREA NITROGEN 16 MG/DL (9-23); CALCIUM LEVEL 8.6 MG/DL (8.3-10.6); CARBON DIOXIDE LEVEL 31 MMOL/L (20-31); CHLORIDE LEVEL 103 MMOL/L (98-107); CREATININE FOR GFR 0.96 MG/DL (0.70-1.30); GLOMERULAR FILTRATION RATE > 60.0 (>42); GLUCOSE, FASTING 93 MG/DL (74-106); POTASSIUM SERUM 4.1 MMOL/L (3.5-5.1); SODIUM LEVEL 137 MMOL/L (136-145)
== END ==
LOC: M LAB 11:28
PROVIDERS: ATTEND Urology
DX: Z85.54 Personal history of malignant neoplasm of ureter (principal)

== ENCOUNTER → 2023-07-19 | Outpatient (CLI) | payer MEDICARE, BC | LOC: M PLAIMG 11:35 | PROVIDERS: ATTEND Internal Medicine Pulmonary Disease | DX: R91.8 Other nonspecific abnormal finding of lung field (principal) ==

== ENCOUNTER 2023-08-31 10:50 | Day surgery (SDC) | payer MEDICARE, BC ==
[~2023-08-31] VITALS: Ht 182.9 cm; Wt 86.6 kg
[~2023-08-31 10:50] MED LIST changes: +CEPH500C PO; +FLUT1BLS8 INH; +NS 1,000 ML IV ONE
[2023-08-31] MEDS ORDERED: propofoL 500 MG/50 ML VIAL As Ordered ONE (11:10)
[2023-08-31] MEDS ORDERED: fentaNYL 100 MCG/2 ML INJECTION As Ordered ONE (12:31)
[2023-08-31] MEDS ORDERED: LIDOCAINE 2% 100MG/5ML SDV (FOR ANES.) As Ordered ONE (12:38)
[2023-08-31 13:06] VITALS: TEMP 97.6
[2023-08-31 13:23] VITALS: BP 147/65; O2SAT 95
== END 2023-08-31 13:35 | disposition home or self-care (01) ==
LOC: M OPP 10:50
PROVIDERS: ATTEND Surgery
DX: D12.6 Benign neoplasm of colon, unspecified (principal); R19.5 Other fecal abnormalities; K44.9 Diaphragmatic hernia without obstruction or gangrene; K29.81 Duodenitis with bleeding; R10.13 Epigastric pain; I10 Essential (primary) hypertension; Z87.891 Personal history of nicotine dependence; Z79.01 Long term (current) use of anticoagulants; Z79.2 Long term (current) use of antibiotics; Z79.51 Long term (current) use of inhaled steroids; Z79.899 Other long term (current) drug therapy
CPT/HCPCS: 43239; 45385; 88305; J3010

== ENCOUNTER 2023-10-18 13:21 | Emergency (ER) | payer MEDICARE, BC ==
[~2023-10-18] VITALS: Ht 182.9 cm; Wt 90.6 kg
[~2023-10-18 13:21] MED LIST changes: -NS 1,000 ML IV ONE
[2023-10-18] MEDS ORDERED: PRED10TA2 (13:30)
[2023-10-18 13:54] LABS: BASO # 0.1 10^3/uL (0.0-0.2); BASO % 0.7 % (0.0-1.0); EOS # 0.1 10^3/uL (0.0-0.5); EOS % 0.9 % (0.0-3.0); HEMATOCRIT 45.9 % (42.0-52.0); HEMOGLOBIN 15.4 g/dl (13.5-17.5); LYMPH # 1.1 10^3/uL (1.5-5.0); LYMPH % 9.2 % (24.0-44.0); MEAN CORPUSCULAR HEMOGLOBIN 31.7 pg (27.0-33.0); MEAN CORPUSCULAR HGB CONC 33.6 g/dl (32.0-36.5); MEAN CORPUSCULAR VOLUME 94.4 fl (80.0-96.0); MONO % 8.1 % (2.0-8.0); NEUTROPHILS # 9.6 10^3/uL (1.5-8.5); NEUTROPHILS % 79.4 % (36.0-66.0); PLATELET COUNT, AUTOMATED 286 10^3/uL (150-450); RED BLOOD COUNT 4.86 10^6/uL (4.30-6.10); WHITE BLOOD COUNT 12.1 10^3/uL (4.0-10.0)
[2023-10-18 14:22] LABS: BLOOD UREA NITROGEN 22 MG/DL (9-23); CALCIUM LEVEL 8.2 MG/DL (8.3-10.6); CARBON DIOXIDE LEVEL 30 MMOL/L (20-31); CHLORIDE LEVEL 103 MMOL/L (98-107); CREATININE FOR GFR 0.92 MG/DL (0.70-1.30); GLOMERULAR FILTRATION RATE > 60.0 (>42); GLUCOSE, FASTING 94 MG/DL (74-106); POTASSIUM SERUM 3.6 MMOL/L (3.5-5.1); SODIUM LEVEL 138 MMOL/L (136-145)
[2023-10-18] MEDS: NS 500 ML IV ONE (16:18)
[2023-10-18 17:13] LABS: INR 1.1; PARTIAL THROMBOPLASTIN TIME 35.2 SECONDS (24.8-34.2); PROTHROMBIN TIME 13.9 SECONDS (12.5-14.5)
[2023-10-18 17:48] VITALS: BP 161/77; TEMP 97.6; O2SAT 96
== END 2023-10-18 17:58 | disposition home or self-care (01) ==
LOC: M ED 13:21
DX: N20.0 Calculus of kidney (principal); R31.0 Gross hematuria; R59.0 Localized enlarged lymph nodes; M54.50 Low back pain, unspecified; J44.9 Chronic obstructive pulmonary disease, unspecified; I10 Essential (primary) hypertension; Z87.442 Personal history of urinary calculi; Z86.711 Personal history of pulmonary embolism; Z86.718 Personal history of other venous thrombosis and embolism

== ENCOUNTER → 2024-03-22 | Outpatient (CLI) | payer MEDICARE, BC ==
[~2024-03-22] MED LIST changes: -ADV250INH; +ADVA1AER9; +PRED10TA2
== END ==
LOC: M PLAIMG 14:23
PROVIDERS: ATTEND Internal Medicine Pulmonary Disease
DX: R91.8 Other nonspecific abnormal finding of lung field (principal); J43.2 Centrilobular emphysema; I71.21 Aneurysm of the ascending aorta, without rupture; I25.84 Coronary atherosclerosis due to calcified coronary lesion

== ENCOUNTER → 2024-03-28 | Outpatient (CLI) | payer MEDICARE, BC ==
[2024-03-28 17:39] LABS: ATYPICAL LYMPH 1 % (0-5); EOSINOPHILS 1 % (0-3); LYMPHOCYTES 3 % (16-44); MONOCYTES 4 % (0-5); NEUTROPHILS 91 % (28-66); PLATELET ESTIMATE NORMAL (NORMAL)
== END ==
LOC: M WUC 15:12
PROVIDERS: ATTEND Nurse Practitioner Adult Health
DX: D72.9 Disorder of white blood cells, unspecified (principal); R04.2 Hemoptysis; R91.8 Other nonspecific abnormal finding of lung field

== ENCOUNTER → 2024-03-30 | Outpatient (REF) | payer MEDICARE, BC | LOC: M LAB REF 10:21 | PROVIDERS: ATTEND Nurse Practitioner Adult Health | DX: J44.1 Chronic obstructive pulmonary disease with (acute) exacerbation (principal); R05.9 Cough, unspecified ==

== ENCOUNTER → 2024-04-24 | Outpatient (CLI) | payer MEDICARE, BC | LOC: M WUC 09:28 | PROVIDERS: ATTEND Nurse Practitioner Adult Health | DX: J18.9 Pneumonia, unspecified organism (principal) ==

== ENCOUNTER → 2024-04-30 | Outpatient (REF) | payer MEDICARE, OTHER | LOC: M LAB REF 11:57 | PROVIDERS: ATTEND Nurse Practitioner Adult Health | DX: Z86.14 Personal history of Methicillin resistant Staphylococcus aureus infection (principal) ==

== ENCOUNTER → 2024-05-15 | Outpatient (CLI) | payer MEDICARE, OTHER | LOC: M WUC 11:52 | PROVIDERS: ATTEND Nurse Practitioner Adult Health | DX: R07.89 Other chest pain (principal); J90 Pleural effusion, not elsewhere classified ==

== ENCOUNTER → 2024-06-21 | Outpatient (CLI) | payer MEDICARE, OTHER ==
[~2024-06-21] MED LIST changes: -FLOM0.4C39 PO; +TAMS-18 PO
== END ==
LOC: M WUC 14:20
PROVIDERS: ATTEND Nurse Practitioner Adult Health
DX: Z09 Encounter for follow-up examination after completed treatment for conditions other than malignant neoplasm (principal); Z87.09 Personal history of other diseases of the respiratory system

== ENCOUNTER → 2024-11-26 | Outpatient (CLI) | payer MEDICARE, OTHER, BC ==
[2024-11-26 11:17] LABS: CALCIUM LEVEL 8.1 MG/DL (8.3-10.6); CARBON DIOXIDE LEVEL 31.0 MMOL/L (20-31); CHLORIDE LEVEL 99.0 MMOL/L (98-107); CREATININE FOR GFR 1.0 MG/DL (0.70-1.30); GLOMERULAR FILTRATION RATE 76.1 (>35); POTASSIUM SERUM 4.0 MMOL/L (3.5-5.1); PROSTATIC SPECIFIC AG MONITOR 2.72 NG/ML (< 4.00); SODIUM LEVEL 137.0 MMOL/L (136-145)
== END ==
LOC: M LAB 09:35
PROVIDERS: ATTEND Urology
DX: Z85.54 Personal history of malignant neoplasm of ureter (principal); Z79.899 Other long term (current) drug therapy

== ENCOUNTER → 2024-12-14 | Outpatient (CLI) | payer MEDICARE, BC ==
[2024-12-14 13:04] LABS: BASO # 0.0 10^3/uL (0.0-0.2); BASO % 0.4 % (0.0-1.0); EOS # 0.1 10^3/uL (0.0-0.5); EOS % 0.8 % (0.0-3.0); LYMPH # 0.9 10^3/uL (1.5-5.0); LYMPH % 8.6 % (24.0-44.0); MONO # 0.9 10^3/uL (0.0-0.8); MONO % 8.5 % (2.0-8.0); NEUTROPHILS # 8.6 10^3/uL (1.5-8.5); NEUTROPHILS % 81.2 % (36.0-66.0); PLATELET COUNT, AUTOMATED 223 10^3/uL (150-450)
== END ==
LOC: M WUC 10:15
PROVIDERS: ATTEND Nurse Practitioner Family
DX: R59.9 Enlarged lymph nodes, unspecified (principal)